=== PATIENT | female | born 1970 | race Two or more races ===

== ENCOUNTER 2023-05-07 05:48 | Inpatient (IN) | payer BC ==
[2023-04-30 16:53] LABS: BASOPHILS # (AUTO) 0.1 X10'3 (0-0.2); BASOPHILS % (AUTO) 1.2 % (0-1); EOSINOPHILS # (AUTO) 0.2 X10'3 (0-0.9); EOSINOPHILS % (AUTO) 2.2 % (0-6); LYMPHOCYTES # (AUTO) 1.6 X10'3 (1.1-4.8); LYMPHOCYTES % (AUTO) 19.8 % (21-51); MEAN CORPUSCULAR HEMOGLOBIN 28.7 PG (27.0-31.0); MEAN CORPUSCULAR HGB CONC 32.5 g/dL (33.0-36.5); MEAN CORPUSCULAR VOLUME 88.2 FL (78-98); MEAN PLATELET VOLUME 9.8 FL (7.4-10.4); MONOCYTES # (AUTO) 0.4 X10'3 (0-0.9); MONOCYTES % (AUTO) 4.6 % (2-12); NEUTROPHILS % (AUTO) 72.2 % (42-75); PRE OP HEMATOCRIT 40.5 % (35.0-45.0); PRE OP HEMOGLOBIN 13.2 g/dL (12.0-16.0); PRE OP PLATELET COUNT 221 X10'3 (140-440); RED BLOOD COUNT 4.59 X10'6 (4.20-5.60); RED CELL DISTRIBUTION WIDTH 17.6 % (11.5-14.5)
[2023-04-30 17:08] LABS: ALBUMIN 3.8 G/DL (3.4-5.0); ALBUMIN/GLOBULIN RATIO 1.1 (1.1-1.5); ALKALINE PHOSPHATASE 73 IU/L (46-116); BLOOD UREA NITROGEN 19 MG/DL (7-18); CALCIUM 8.9 MG/DL (8.5-10.1); CHLORIDE 104 MMOL/L (99-107); CREATININE 0.73 MG/DL (0.40-0.90); PRE OP ALT 28 U/L (30-65); PRE OP ANION GAP 7 (8-16); PRE OP AST 21 U/L (10-37); PRE OP BILIRUB, TOTAL 0.3 MG/DL (0.0-1.0); PRE OP GLUCOSE 112 MG/DL (70-104); PRE OP POTASSIUM 3.4 MMOL/L (3.4-5.1); PRE OP SODIUM 138 MMOL/L (135-145); TOTAL CARBON DIOXIDE 27.4 MMOL/L (24-32); TOTAL PROTEIN 7.3 G/DL (6.4-8.2); eGFR 84 ML/MIN
[~2023-05-07] VITALS: Ht 175.3 cm; Wt 83.9 kg
[2023-05-07] VITALS (16 sets, daily range): BP systolic 106–141; BP diastolic 53–100
[~2023-05-07 05:48] MED LIST: AMPH30CA6 PO; CHOL500050 PO; FERR134T2 PO; LACT1CAP65 PO; LORA-641 PO; VITE400C PO; ZINC50CA2 PO; ceFOXitin 2GM-NS 100mL ADDvant 100 ML IV ONE; famotidine 20mg tablet PO ONE; ringers solution, lacted 1,000 ML IV SCH
[2023-05-07] MEDS ORDERED: BUPIVAcaine/PF 2.5 mg/ml (0.25%) 30ml vial ONE (07:00)
[2023-05-07] MEDS ORDERED: vasoPRESSIN 20 units/ml inj. ONE (07:00)
[2023-05-07] MEDS ORDERED: sevoflurane 250ml liquid IH ONE (07:23)
[2023-05-07] MEDS ORDERED: midazolam 1 mg/ML 2ml injection ONE (07:23)
[2023-05-07] MEDS ORDERED: fentaNYL /PF 50mcg/ml 5ml ampule ONE (07:23)
[2023-05-07] MEDS ORDERED: propofol inj 20 ML IV ONE (07:23)
[2023-05-07] MEDS ORDERED: rocuronium 10mg/ml inj IV ONE (07:24)
[2023-05-07 07:27] LABS: COLOR,URINE YELLOW (Yellow); GLUCOSE, URINE NEGATIVE (Neg); KETONES,URINE NEGATIVE (Neg); LEUKOCYTE ESTERASE ,URINE NEGATIVE (Neg); NITRITES, URINE NEGATIVE (Neg); OCCULT BLOOD,URINE LARGE (Neg); PROTEIN,URINE NEGATIVE (Neg); UROBILINOGEN,URINE 0.2 E.U/dL (0.2-1.0)
[2023-05-07 07:30] LABS: CLARITY,URINE SLIGHTLY CLOUDY (Clear); UA COLLECTION TYPE NON-SPECIFIED
[2023-05-07 07:33] LABS: BACTERIA,URINE 1+ /HPF (Neg); MUCUS STRANDS NONE SEEN /LPF (Neg); RBC,URINE 50-100 /HPF (0-2); SQUAMOUS EPITHELIAL CELL,UR MODERATE /LPF (FEW); WBC,URINE 0-4 /HPF (0-4)
[2023-05-07] MEDS ORDERED: ringers solution, lacted 1,000 ML IV SCH (08:55)
[2023-05-07] MEDS ORDERED: morphine 4 MG/ML inj SYRINge IV PRN (08:55)
[2023-05-07] MEDS ORDERED: meperidine/PF 25mg/ml syringe IV PRN ×3 (08:55)
[2023-05-07] MEDS ORDERED: morphine 2 MG/ML inj. syringe IV PRN (08:55)
[2023-05-07] MEDS ORDERED: proCHLORperazine 10 MG/2 ml inj IV PRN (08:55)
[2023-05-07] MEDS ORDERED: ondansetron/PF 4mg/2ml inj IV PRN ×2 (08:55→09:40)
[2023-05-07] MEDS ORDERED: ondansetron/PF 4mg/2ml inj ONE (09:04)
[2023-05-07] MEDS ORDERED: dexamethasone sod phosphate 4mg/ml inj. ONE (09:04)
[2023-05-07] MEDS ORDERED: acetaminophen 1,000mg/100ml IV 100 ML IV ONE (09:07)
[2023-05-07] MEDS ORDERED: sugammadex 200mg/2ml injection IV ONE (09:21)
[2023-05-07] MEDS ORDERED: HYDROcodone/acetaminophen 10/325mg tab PO PRN (09:40)
[2023-05-07] MEDS: ringers solution, lacted 1,000 ML IV SCH ×2 (09:40→15:09)
[2023-05-07] MEDS ORDERED: mag hydrox/Alum hydrox/simeth 30ml oral suspension PO PRN (09:40)
[2023-05-07] MEDS ORDERED: diphenhydrAMINE 50 mg/ml inj IV PRN (09:40)
[2023-05-07] MEDS ORDERED: metoclopramide 5 mg/ml inj IV PRN (09:40)
[2023-05-07] MEDS ORDERED: LORazepam 2 mg/ml vial IV PRN (09:40)
[2023-05-07] MEDS ORDERED: magnesium hydroxide 30ml (MOM) UD suspension PO PRN (09:40)
[2023-05-07] MEDS ORDERED: normal saline 500ml IV soln 500 ML IV PRN (09:40)
[2023-05-07] MEDS ORDERED: temazepam 15mg capsule PO PRN (09:40)
--- NOTE | 2023-05-07 10:38 | NUR ---
PATIENT TAKEN TO ORTHO FLOOR ROOM WITH ALL BELONGINGS AND HOOKED UP TO ALL MONITORS IN ROOM AND REPORT GIVEN TO LOU TAMEZ WHO HAS TAKEN OVER PATIENT CARE UNTIL ALBERTO BLAKE COMES BACK FROM BREAK. VSS. PAIN AT A TOLERABLE LEVEL AT THIS TIME. PATIENT WITH ONLY UNDERWEAR IN A BAG THAT WAS LABELED AND SENT TO THE FLOOR. Addendum: 05/07/23 at 1049 by Mihai Fair RN, RN Amended: Links added.
[2023-05-07] MEDS: HYDROcodone/acetaminophen 10/325mg tab PO PRN ×2 (11:26→17:02)
[2023-05-07] MEDS: simethicone 80mg chew tab PO SCH ×2 (12:48→17:03)
[2023-05-07] MEDS: ketorolac trometh. 30mg/ml inj. IV PRN ×2 (13:13→20:04)
--- NOTE | 2023-05-07 18:35 | NUR ---
Patient in room [facility]TH[facility] 4022. I have received report from ALBERTO BLAKE and had the opportunity to ask questions and assume patient care.
[2023-05-07] MEDS: docusate sod 100mg capsule PO SCH (20:06)
[2023-05-08] MEDS: ringers solution, lacted 1,000 ML IV SCH (00:30)
[2023-05-08] MEDS: HYDROcodone/acetaminophen 10/325mg tab PO PRN ×2 (00:31→07:51)
[2023-05-08 02:00] VITALS: BP 117/68
[2023-05-08] MEDS: ketorolac trometh. 30mg/ml inj. IV PRN (05:48)
[2023-05-08 06:00] VITALS: BP 105/82
--- NOTE | 2023-05-08 06:22 | NUR ---
Problems reprioritized. Patient report given, questions answered & plan of care reviewed with ALBERTO BLAKE.
[2023-05-08] MEDS: docusate sod 100mg capsule PO SCH (07:52)
[2023-05-08] MEDS: simethicone 80mg chew tab PO SCH ×2 (07:52→13:11)
[2023-05-08 09:01] LABS: BASOPHILS % (AUTO) 0.1 % (0-1); EOSINOPHILS % (AUTO) 0.1 % (0-6); HEMATOCRIT 29.7 % (35.0-45.0); HEMOGLOBIN 9.6 g/dl (12.0-16.0); LYMPHOCYTES # (AUTO) 1.4 X10'3 (1.1-4.8); MEAN CORPUSCULAR HEMOGLOBIN 28.7 PG (27.0-31.0); MEAN CORPUSCULAR HGB CONC 32.1 g/dL (33.0-36.5); MEAN CORPUSCULAR VOLUME 89.3 FL (78-98); MEAN PLATELET VOLUME 9.4 FL (7.4-10.4); MONOCYTES # (AUTO) 1.4 X10'3 (0-0.9); NEUTROPHILS # (AUTO) 17.1 X10'3 (1.8-7.7); NEUTROPHILS % (AUTO) 85.8 % (42-75); PLATELET COUNT 218 X10'3 (140-440); RED BLOOD COUNT 3.33 X10'6 (4.20-5.60); RED CELL DISTRIBUTION WIDTH 17.2 % (11.5-14.5); WHITE BLOOD COUNT 19.9 X10'3 (4.5-11.0)
[2023-05-08 09:39] LABS: ALBUMIN 2.9 G/DL (3.4-5.0); ANION GAP 9 (8-16); BLOOD UREA NITROGEN 18 MG/DL (7-18); BUN/CREATININE RATIO 11.8 (10.0-20.0); CALCIUM 8.3 MG/DL (8.5-10.1); CHLORIDE 100 MMOL/L (99-107); CREATININE 1.53 MG/DL (0.40-0.90); GLUCOSE 115 MG/DL (70-104); POTASSIUM 3.9 MMOL/L (3.5-5.1); SODIUM 135 MMOL/L (135-145); TOTAL CARBON DIOXIDE 26.3 MMOL/L (24-32); eGFR 36 ML/MIN
[2023-05-08 10:00] VITALS: BP 101/54
[2023-05-08 14:00] VITALS: BP 110/56
--- NOTE | 2023-05-08 16:10 | NUR ---
Patient discharged to home with significant other in stable condition. iv removed tip intact no complications. belongings sent with pt. pt educated on discharge instructions/follow up.
== END 2023-05-08 16:10 | disposition home or self-care (01) | DRG 743 ==
LOC: PAS IN 05:48 → UNDOADMIN 05:48 → PAS IN 09:42 → ORTHO 4S 10:45
PROVIDERS: ADMIT Obstetrics & Gynecology Obstetrics; ATTEND Obstetrics & Gynecology Obstetrics
PROC: 0UT70ZZ Resection of Bilateral Fallopian Tubes, Open Approach (ICD-10-PCS; 2023-05-07)
PROC: 0UT00ZZ Resection of Right Ovary, Open Approach (ICD-10-PCS; 2023-05-07)
PROC: 0UT90ZZ Resection of Uterus, Open Approach (ICD-10-PCS; principal; 2023-05-07 07:23)
DX: D25.9 Leiomyoma of uterus, unspecified (principal); N83.9 Noninflammatory disorder of ovary, fallopian tube and broad ligament, unspecified
CPT/HCPCS: Z7506; Z7508; 36415; 71046; 80048; 80053; 81001; 82948; 85025; 86885; 86900; 86901; 87081; 93005; A4618; A7000; C1758; G0378; J0131; J0694; J1100; J1885; J2175; J2250; J2270; J2405; J2704; J3010; J3490; J7120

== ENCOUNTER 2023-10-07 14:04 | Inpatient (IN) | payer BC, MEDICAID ==
[~2023-10-07] VITALS: Ht 175.3 cm; Wt 82.7 kg
[~2023-10-07 14:04] MED LIST changes: -FERR134T2 PO; -ceFOXitin 2GM-NS 100mL ADDvant 100 ML IV ONE; -famotidine 20mg tablet PO ONE; -ringers solution, lacted 1,000 ML IV SCH
[2023-10-07 15:33] LABS: BASOPHILS # (AUTO) 0.2 X10'3 (0-0.2); BASOPHILS % (AUTO) 0.6 % (0-1); EOSINOPHILS % (AUTO) 0 % (0-6); HEMATOCRIT 37.9 % (35.0-45.0); HEMOGLOBIN 12.2 g/dl (12.0-16.0); LYMPHOCYTES % (AUTO) 3.8 % (21-51); MEAN CORPUSCULAR HEMOGLOBIN 24.8 PG (27.0-31.0); MEAN CORPUSCULAR HGB CONC 32.3 g/dL (33.0-36.5); MEAN CORPUSCULAR VOLUME 76.8 FL (78-98); MEAN PLATELET VOLUME 8.6 FL (7.4-10.4); MONOCYTES # (AUTO) 1.6 X10'3 (0-0.9); MONOCYTES % (AUTO) 6.1 % (2-12); NEUTROPHILS % (AUTO) 89.5 % (42-75); PLATELET COUNT 363 X10'3 (140-440); RED BLOOD COUNT 4.93 X10'6 (4.20-5.60)
[2023-10-07 15:38] LABS: WHITE BLOOD COUNT 26.8 X10'3 (4.5-11.0)
[2023-10-07 15:45] LABS: ALANINE AMINOTRANSFERASE 37 U/L (12-78); ALBUMIN 3.8 G/DL (3.4-5.0); ALBUMIN/GLOBULIN RATIO 0.8 (1.1-1.5); ALKALINE PHOSPHATASE 179 IU/L (46-116); ANION GAP 9 (8-16); ASPARTATE AMINO TRANSFERASE 46 U/L (10-37); BILIRUBIN,TOTAL 0.5 MG/DL (0.1-1.0); BLOOD UREA NITROGEN 16 MG/DL (7-18); BUN/CREATININE RATIO 16.7 (10.0-20.0); CALCIUM 9.4 MG/DL (8.5-10.1); CHLORIDE 100 MMOL/L (99-107); CREATININE 0.96 MG/DL (0.40-0.90); GLUCOSE 140 MG/DL (70-104); LIPASE 16 U/L (16-77); POTASSIUM 3.7 MMOL/L (3.5-5.1); SODIUM 136 MMOL/L (135-145); TOTAL PROTEIN 8.4 G/DL (6.4-8.2); eCRCL 72 ML/MIN; eGFR 61 ML/MIN
[2023-10-07 16:04] LABS: ANISOCYTOSIS 2+; ELLIPTOCYTES FEW; MICROCYTOSIS 1+; PLATELET ESTIMATE NORMAL; TOTAL CELLS COUNTED 100
[2023-10-07] MEDS ORDERED: piperacillin/tazo 3.375gm/50ml 50 ML IV ONE (22:10)
[2023-10-07] MEDS ORDERED: normal saline 1000ML IV soln IVB ONE ×2 (22:10)
[2023-10-07] MEDS ORDERED: vancomycin/NS 1 GM ADD-VANTAGE 250 ML IV ONE (22:10)
[2023-10-07] MEDS ORDERED: ketorolac trometh. 30mg/ml inj. IV ONE (22:20)
[2023-10-07] MEDS ORDERED: iohexol 350MG/ML 100ml bottle IV ONE (22:47)
[2023-10-08 00:59] LABS: BILIRUBIN,URINE NEGATIVE (Neg); CLARITY,URINE SLIGHTLY CLOUDY (Clear); COLOR,URINE YELLOW (Yellow); GLUCOSE, URINE NEGATIVE (Neg); KETONES,URINE 40 mg/dl (Neg); LEUKOCYTE ESTERASE ,URINE NEGATIVE (Neg); NITRITES, URINE NEGATIVE (Neg); OCCULT BLOOD,URINE MODERATE (Neg); PH,URINE 5.5 (4.8-8.0); PROTEIN,URINE 100 mg/dl (Neg); UROBILINOGEN,URINE 0.2 E.U/dL (0.2-1.0)
[2023-10-08] MEDS ORDERED: acetaminophen 325mg tablet PO PRN (01:25)
[2023-10-08] MEDS ORDERED: metoclopramide 5 mg/ml inj IV PRN (01:25)
[2023-10-08] MEDS ORDERED: magnesium hydroxide 30ml (MOM) UD suspension PO PRN (01:25)
[2023-10-08] MEDS ORDERED: ondansetron 4mg rapidly disintigrating tab PO PRN (01:25)
[2023-10-08] MEDS ORDERED: morphine 2 MG/ML inj. syringe IV PRN ×2 (01:25)
[2023-10-08] MEDS ORDERED: bisacodyl 10mg suppository rectal RC PRN (01:25)
[2023-10-08] MEDS ORDERED: ondansetron/PF 4mg/2ml inj IV PRN (01:25)
[2023-10-08] MEDS ORDERED: diphenhydrAMINE 50 mg/ml inj IV PRN (01:25)
[2023-10-08] MEDS ORDERED: mag hydrox/Alum hydrox/simeth 30ml oral suspension PO PRN (01:25)
[2023-10-08] MEDS ORDERED: acetaminophen 650mg rectal suppository RC PRN (01:25)
[2023-10-08] MEDS ORDERED: diphenhydrAMINE 25mg capsule PO PRN (01:25)
[2023-10-08] MEDS ORDERED: HYDROcodone/acetaminophen 5mg/325mg tablet PO PRN (01:25)
[2023-10-08] MEDS ORDERED: HYDROcodone/acetaminophen 10/325mg tab PO PRN (01:25)
[2023-10-08 01:29] LABS: UA COLLECTION TYPE CLN CATCH MIDSTREAM
[2023-10-08] MEDS ORDERED: ringers solution, lacted 1,000 ML IV ONE (01:30)
[2023-10-08 01:35] LABS: MUCUS STRANDS FEW /LPF (Neg); SQUAMOUS EPITHELIAL CELL,UR MANY /LPF (FEW)
[2023-10-08 01:36] LABS: BACTERIA,URINE 2+ /HPF (Neg); TRANSITIONAL EPI CELLS,URINE FEW /HPF
[2023-10-08 01:41] LABS: TRICHOMONAS,URINE MOD /HPF (NEGATIVE)
[2023-10-08 01:56] LABS: C-REACTIVE PROTEIN 22.79 MG/DL (0.0-0.5); CREATINE KINASE 40 U/L (26-192); MAGNESIUM 1.9 MG/DL (1.5-2.4); PHOSPHORUS 2.5 MG/DL (2.3-4.5); PRO BRAIN NATRIURETIC PEPTIDE 102 PG/ML (0-125)
[2023-10-08 02:07] LABS: HEMOGLOBIN A1C 5.6 % (4.5-6.2)
[2023-10-08 02:42] LABS: APTT 34 SECONDS (22-32); INR 1.1 INR; PROTHROMBIN TIME 12.1 SECONDS (9.0-12.0)
[2023-10-08] MEDS: normal saline 1000ml 1,000 ML IV SCH ×5 (03:47→19:57)
[2023-10-08] MEDS: docusate sod 100mg capsule PO SCH ×2 (08:00→20:00)
[2023-10-08] MEDS: pantoprazole 40mg Tablet.DR PO SCH (08:10)
[2023-10-08] MEDS: heparin, porcine 5000 units/ml vial SQ SCH ×2 (08:11→19:58)
[2023-10-08] MEDS: CefTRIAXone/D5W-Rocephin 1gm 50 ML IV SCH ×2 (08:11→19:57)
[2023-10-08] MEDS: acetaminophen 325mg tablet PO PRN ×2 (09:12→18:00)
[2023-10-08] MEDS ORDERED: FOLI-101 PO (10:32)
[2023-10-08] MEDS ORDERED: INUL2TAB8 PO (10:32)
--- NOTE | 2023-10-08 11:46 | NUR ---
Pt alert and oriented, at bedside.
--- NOTE | 2023-10-08 11:47 | NUR ---
Contacted Dr. Silva, per MD powell to continue regular diet order and DC NPO.
--- NOTE | 2023-10-08 12:45 | NUR ---
Pt provided lunch tray, alert and oriented. able to make needs known.
--- NOTE | 2023-10-08 14:54 | NUR ---
pt appears asleep, RR even and unlabored.
--- NOTE | 2023-10-08 15:33 | NUR ---
pt reports relief after morphine, also provided warm towel for neck support.
--- NOTE | 2023-10-08 17:48 | NUR ---
Pt reporting chills and bodyaches, temperature checked 100.6. Also reporting headache pain 07/02. Ambulated to restroom with steady gate.
--- NOTE | 2023-10-08 19:40 | NUR ---
DR RIVAS CAME TO ER TO NOTIFY THE TRANSPORTATION ATTENDANT TO GET URINE SPECIMEN FROM PT FOR CULTURE ALSO TO DO BLADDER SCAN POST VOID ,IF RETAINING MORE THAN 300 ML INITATE MARR CATHETER.
[2023-10-08] MEDS: acetaminophen 325mg tablet PO SCH (20:02)
[2023-10-08] MEDS ORDERED: LIDOcaine 2% 10ml TOPICAL JELLY (Urojet) TP ONE (20:25)
[2023-10-08 20:32] LABS: BILIRUBIN,URINE NEGATIVE (Neg); CLARITY,URINE CLEAR (Clear); COLOR,URINE YELLOW (Yellow); GLUCOSE, URINE NEGATIVE (Neg); KETONES,URINE 15 mg/dl (Neg); LEUKOCYTE ESTERASE ,URINE NEGATIVE (Neg); NITRITES, URINE NEGATIVE (Neg); OCCULT BLOOD,URINE MODERATE (Neg); PH,URINE 6.5 (4.8-8.0); PROTEIN,URINE NEGATIVE (Neg)
[2023-10-08] MEDS ORDERED: LidoCAINE 2% Topical Jelly 11mL syringe TOP ONE (20:35)
[2023-10-08 20:41] LABS: UA COLLECTION TYPE CLN CATCH MIDSTREAM
[2023-10-08 20:42] LABS: BACTERIA,URINE FEW /HPF (Neg); SQUAMOUS EPITHELIAL CELL,UR FEW /LPF (FEW); WBC,URINE 0-4 /HPF (0-4)
[2023-10-08] MEDS ORDERED: temazepam 15mg capsule PO PRN (21:00)
--- NOTE | 2023-10-08 21:30 | NUR ---
assumed care of pt from Medardo BLAKE.
--- NOTE | 2023-10-08 23:20 | NUR ---
pt is sleeping, resp even and unlabored, lloyd draining clear yellow urine
[2023-10-09] MEDS: acetaminophen 325mg tablet PO SCH ×2 (02:26→08:08)
--- NOTE | 2023-10-09 02:27 | NUR ---
Patient afebrile but stated she would still like the tylenol as scheduled.
[2023-10-09] MEDS: normal saline 1000ml 1,000 ML IV SCH ×2 (04:59)
--- NOTE | 2023-10-09 07:45 | NUR ---
SPOKE WITH DR RIVAS WHO REQUESTED AM LABS BE DRAWN MINGO.
[2023-10-09] MEDS: heparin, porcine 5000 units/ml vial SQ SCH (08:06)
[2023-10-09] MEDS: CefTRIAXone/D5W-Rocephin 1gm 50 ML IV SCH (08:08)
[2023-10-09] MEDS: pantoprazole 40mg Tablet.DR PO SCH (08:08)
--- NOTE | 2023-10-09 08:28 | NUR ---
ASSUMED CARE WITH NO REPORT
--- NOTE | 2023-10-09 08:29 | NUR ---
ATTEMPTED TO CALL REPORT TO FLOOR.
[2023-10-09 08:34] LABS: BASOPHILS # (AUTO) 0.1 X10'3 (0-0.2); BASOPHILS % (AUTO) 0.6 % (0-1); EOSINOPHILS # (AUTO) 0.2 X10'3 (0-0.9); EOSINOPHILS % (AUTO) 1.7 % (0-6); HEMATOCRIT 28.5 % (35.0-45.0); HEMOGLOBIN 9.4 g/dl (12.0-16.0); LYMPHOCYTES # (AUTO) 1.2 X10'3 (1.1-4.8); LYMPHOCYTES % (AUTO) 11.4 % (21-51); MEAN CORPUSCULAR HEMOGLOBIN 25.1 PG (27.0-31.0); MEAN CORPUSCULAR HGB CONC 32.9 g/dL (33.0-36.5); MEAN CORPUSCULAR VOLUME 76.3 FL (78-98); MEAN PLATELET VOLUME 8.9 FL (7.4-10.4); MONOCYTES % (AUTO) 9.6 % (2-12); NEUTROPHILS # (AUTO) 8.1 X10'3 (1.8-7.7); NEUTROPHILS % (AUTO) 76.7 % (42-75); PLATELET COUNT 255 X10'3 (140-440); RED BLOOD COUNT 3.73 X10'6 (4.20-5.60); RED CELL DISTRIBUTION WIDTH 18.6 % (11.5-14.5); WHITE BLOOD COUNT 10.6 X10'3 (4.5-11.0)
[2023-10-09 08:52] LABS: ALANINE AMINOTRANSFERASE 32 U/L (12-78); ALBUMIN 2.6 G/DL (3.4-5.0); ALBUMIN/GLOBULIN RATIO 0.7 (1.1-1.5); ALKALINE PHOSPHATASE 184 IU/L (46-116); ANION GAP 8 (8-16); ASPARTATE AMINO TRANSFERASE 24 U/L (10-37); BILIRUBIN,TOTAL 0.2 MG/DL (0.1-1.0); BLOOD UREA NITROGEN 12 MG/DL (7-18); BUN/CREATININE RATIO 17.6 (10.0-20.0); CALCIUM 8.5 MG/DL (8.5-10.1); CHLORIDE 106 MMOL/L (99-107); CHOL/HDL RATIO 3.6 (0.00-4.99); CHOLESTEROL 154 MG/DL (0-200); CREATININE 0.68 MG/DL (0.40-0.90); GLUCOSE 112 MG/DL (70-104); HDL CHOLESTEROL 43 MG/DL (35-60); LDL CHOLESTEROL 79 MG/DL (50-100); POTASSIUM 3.1 MMOL/L (3.5-5.1); SODIUM 139 MMOL/L (135-145); TOTAL CARBON DIOXIDE 25.2 MMOL/L (24-32); TOTAL PROTEIN 6.4 G/DL (6.4-8.2); TRIGLYCERIDES 128 MG/DL (20-135); eCRCL 102 ML/MIN; eGFR > 90 ML/MIN
[2023-10-09 09:15] VITALS: BP 107/72; PULSE 70; RESP 15; TEMP 97.9; O2SAT 98
[2023-10-09 09:30] VITALS: RESP 13; O2SAT 97
[2023-10-09] MEDS ORDERED: metoclopramide 5 mg/ml inj IV PRN (09:35)
[2023-10-09 10:00] VITALS: BP 107/76; PULSE 70; RESP 15; TEMP 97.9; O2SAT 98
[2023-10-09] MEDS ORDERED: LEVO-65 PO (10:08)
[2023-10-09] MEDS ORDERED: POTA-366 PO ×3 (11:23→11:24)
[2023-10-09] MEDS ORDERED: potassium Cl 20 mEq SR tablet PO ONE (11:25)
--- NOTE | 2023-10-09 11:42 | NUR ---
Resident aware of Alk phos. increase, drop in h&h, and k level.
[2023-10-09 11:43] LABS: C-REACTIVE PROTEIN 15.75 MG/DL (0.0-0.5)
[2023-10-09 12:52] LABS: HBSAG SCREEN Negative (Negative); HEP B CORE AB, IGM Negative (Negative); HEP B CORE AB, TOT Negative (Negative)
--- NOTE | 2023-10-09 15:45 | NUR ---
Discharge Note: discharge paperwork reviewed with pt; educated on lloyd cath and leg bag care and instructions reviewed, states that she has had an indwelling catheter before and verbalizes understanding of catheter care; instructed on new meds (levaquin and potassium tablets); IV catheter dc'd with cannula intact, telemetry removed and returned; instructed pt to follow up with local urologist; pt dressed and walked to [facility] with charge nurse with all belongings, home via private vehicle.
== END 2023-10-09 15:40 | disposition home or self-care (01) | DRG 872 ==
LOC: ER 14:05 → ED HOLD 10-08 01:29 → ORTHO 4S 10-09 09:15
PROVIDERS: ADMIT Family Medicine; ATTEND Family Medicine
PROC: BW211ZZ Computerized Tomography (CT Scan) of Abdomen and Pelvis using Low Osmolar Contrast (ICD-10-PCS; principal; 2023-10-07)
DX: A41.9 Sepsis, unspecified organism (principal); N17.9 Acute kidney failure, unspecified; N39.0 Urinary tract infection, site not specified; N13.4 Hydroureter; Z20.822 Contact with and (suspected) exposure to COVID-19; R82.4 Acetonuria; E87.6 Hypokalemia; D64.9 Anemia, unspecified; E86.1 Hypovolemia; Z90.79 Acquired absence of other genital organ(s); Z90.722 Acquired absence of ovaries, bilateral; Z90.710 Acquired absence of both cervix and uterus
CPT/HCPCS: 36415; 71045; 74178; 80053; 80061; 81001; 82550; 83036; 83605; 83690; 83735; 83880; 84100; 84145; 84443; 85007; 85025; 85610; 85651; 85730; 86140; 86704; 86705; 87040; 87081; 87340; 87811; 99285; A5200; C1758; G0378; J0696; J1644; J1885; J2270; J2543; J3370; J3490; J7030; J7120; Q9967